=== PATIENT | female | born 1970 ===

== ENCOUNTER → 2018-07-12 21:55 | Outpatient (ROUT) | payer OTHER, SELFPAY ==
[2018-07-12 23:04] LABS: Add Manual Diff / Slide Review NO; Basophils Absolute Auto 0 /uL (0-100); Basophils Percent Auto 0.6 % (0-2); Eosinophils Absolute Auto 200 /uL (0-450); Eosinophils Percent Auto 3.1 % (2-4); Hematocrit 40.8 % (36-46); Hemoglobin 13.4 g/dL (12.0-16.0); Lymphocytes Absolute Auto 2900 /uL (1100-4500); Lymphocytes Percent Auto 54.8 % (25-40); Mean Corpuscular HGB Conc 32.8 % (30-36); Mean Corpuscular Hemoglobin 29.8 PG (26-34); Mean Corpuscular Volume 90.8 fL (80-100); Monocytes Absolute Auto 400 /uL (0-900); Monocytes Percent Auto 7.4 % (3-14); Neutrophils Absolute Auto 1800 /uL (1500-7000); Neutrophils Percent Auto 34.1 % (50-75); Platelet Count 142 X10^3/uL (150-400); Red Blood Cell Count 4.49 X10^6/uL (4.0-5.2); Red Cell Distribution Width 13.7 % (11.6-14.8); White Blood Cell Count 5.3 X10^3/uL (4.5-11.0)
[2018-07-12 23:10] LABS: Total Iron Binding Capacity 333 ug/dL (265-497)
[2018-07-12 23:38] LABS: Ferritin 9.2 ng/mL (6.27-137)
[2018-07-14 17:19] LABS: HIV 1 and 2 Antibody NEGATIVE (NEGATIVE)
[2018-07-16 14:36] LABS: RPR Screen Nonreactive (Nonreactive)
== END ==
PROVIDERS: Visit Provider Naturopath
DX: N92.0 Excessive and frequent menstruation with regular cycle (principal)
CPT/HCPCS: 36415; 82728; 83550; 85025; 86592; 86703